=== PATIENT | male | born 1975 | race Caucasian/White ===

== ENCOUNTER 2018-05-19 21:44 | Emergency (ER) | payer BC ==
[~2018-05-19] VITALS: Ht 177.8 cm; Wt 84.4 kg
[2018-05-19 22:27] VITALS: Ht 177.8 cm; Wt 84.4 kg
[2018-05-19 23:37] LABS: BASOPHIL % 0.3 % (0-2); PLATELET COUNT 216 x10^3mcL (130-400); RED CELL DISTRIBUTION WIDTH 12.5 % (11.5-14.5)
[2018-05-19 23:45] LABS: CALCIUM 9.1 mg/dL (8.5-10.1); CARBON DIOXIDE 28.5 mmol/L (21-32); CHLORIDE SERUM 104 mmol/L (98-107); GFR1 > 60 mL/min; GLUCOSE SERUM 101 mg/dL (74-106); POTASSIUM SERUM 4.1 mmol/L (3.5-5.1); SODIUM SERUM 139 mmol/L (136-145)
[2018-05-20 00:11] VITALS: BP 120/83
== END 2018-05-20 00:11 | disposition home or self-care (01) ==
LOC: ED 21:44
PROVIDERS: Emergency Medicine
DX: R51 Headache (principal); R42 Dizziness and giddiness; R00.2 Palpitations
CPT/HCPCS: 36415

== ENCOUNTER 2019-07-20 18:29 | Emergency (ER) | payer SELFPAY ==
[~2019-07-20] VITALS: Ht 177.8 cm; Wt 88.0 kg
[2019-07-20 18:36] VITALS: Ht 177.8 cm; Wt 88.0 kg
[2019-07-20 19:32] VITALS: BP 135/102
== END 2019-07-20 19:32 | disposition home or self-care (01) ==
LOC: ED 18:29
DX: S39.012A Strain of muscle, fascia and tendon of lower back, initial encounter (principal); R03.0 Elevated blood-pressure reading, without diagnosis of hypertension; X58.XXXA Exposure to other specified factors, initial encounter; Y93.89 Activity, other specified; Y92.89 Other specified places as the place of occurrence of the external cause; Y99.8 Other external cause status
CPT/HCPCS: J1885